=== PATIENT | female | born 1990 | race African-American/Black ===

== ENCOUNTER 2024-05-14 15:28 | Emergency (ER) | payer OTHER ==
[2024-05-14 15:45] VITALS: BP 125/88; PULSE 87; RESP 18; TEMP 98.9; BMI 27.1
[2024-05-14] MEDS ORDERED: IBUPROFEN 600 MG TABLET (FP) PO ONE (17:11)
[2024-05-14] MEDS ORDERED: ACETAMINOPHEN 500 MG TABLET (FP) ONE (17:11)
[2024-05-14] MEDS: IBUPROFEN 600 MG TABLET (FP) PO ONE (17:16)
[2024-05-14] MEDS: ACETAMINOPHEN 500 MG TABLET (FP) PO ONE (17:16)
== END 2024-05-14 17:46 | disposition home or self-care (01) ==
LOC: JERFT 15:28
DX: J10.1 Influenza due to other identified influenza virus with other respiratory manifestations (principal); M79.10 Myalgia, unspecified site; R05.9 Cough, unspecified; R09.81 Nasal congestion; R50.9 Fever, unspecified; Z20.822 Contact with and (suspected) exposure to COVID-19
CPT/HCPCS: 0241U-QW; 99283-25